=== PATIENT | male | born 2000 | race African-American/Black ===

== ENCOUNTER 2019-01-29 11:48 | Observation (INO) | payer OTHER ==
[2019-01-29] MEDS ORDERED: NS 0.9% 1000 ML** 1,000 ML IV ONE (12:35)
[2019-01-29] MEDS ORDERED: Morphine 4 MG/ML VIAL (1 ml) 4 MG/ML VIAL IV ONE (12:36)
[2019-01-29] MEDS ORDERED: Ondansetron INJ* 2 MG/ML VIAL IV ONE (12:36)
--- NOTE | 2019-01-29 12:36 | ED ---
Abdominal Pain/Male - HPI Summary HPI Summary: Pt is a 18 y/o M presenting to the ED with a chief complaint of abd pain onset yesterday morning on 01/29/19. He states that it started in his epigastric, umbilical area and has moved to his RLQ. This morning, he had some nausea without vomiting, and he also noted a small headache yesterday. No analgesia today. Pt took analgesa (OTC) yesterday. He denies sore throat, chest pain, hematuria, dysuria, and burning with urination. He also denies any hx of trauma , surgeries, recent travel or abx use. Isela sick contacts. No pain in penis or testicles no hematuria. no dysuria. Movement tends to make his sx worse but unable to find position that is comfortable. Pt's medications reviewed this visit - History of Current Complaint Chief Complaint: EDAbdPain Stated Complaint: ABD PAIN Time Seen by Provider: 01/29/19 12:11 Hx Obtained From: Patient Onset/Duration: Gradual Onset, Lasting Days, Still Present, Worse Since - today Timing: Constant, Lasting Days Severity Initially: Moderate Severity Currently: Severe Pain Intensity: 7 Pain Scale Used: 0-10 Numeric Location: Discrete At: RLQ Radiates: No Character: Sharp Aggravating Factor(s): Movement Alleviating Factor(s): Nothing Associated Signs And Symptoms: Positive: Nausea. Negative: Chest Pain, Urinary Symptoms, Vomiting - Allergies/Home Medications Allergies/Adverse Reactions: Allergies Allergy/AdvReac Type Severity Reaction Status Date / Time No Known Allergies Allergy Verified 01/29/19 11:56 Home Medications: Home Medications NK [No Home Medications Reported] 01/29/19 [History Confirmed 01/29/19] PMH/Surg Hx/FS Hx/Imm Hx Previously Healthy: Yes Endocrine/Hematology History: Denies: Hx Diabetes Cardiovascular History: Denies: Hx Hypertension Sensory History: Reports: Hx Contacts or Glasses Denies: Hx Deafness Neurological History: Denies: Hx Seizures Infectious Disease History: No Infectious Disease History: Denies: Traveled Outside the [place] in Last 30 Days - Family History Known Family History: Positive: Non-Contributory Negative: Diabetes - Social History Occupation: Student Lives: Dormitory/Roommates Alcohol Use: Occasionally Hx Substance Use: No Substance Use Type: Reports: None Hx Tobacco Use: No Smoking Status (MU): Never Smoked Tobacco Review of Systems Negative: Sore Throat Negative: Chest Pain Positive: Abdominal Pain, Nausea. Negative: Vomiting Negative: burning, dysuria, hematuria Negative: Headache All Other Systems Reviewed And Are Negative: Yes Physical Exam - Summary Physical Exam Summary: Vital Signs Reviewed: Yes A+Ox3, obvious discomfort with movement - lying still, knees flexed Eyes: Conjunctiva Clear ENT: Hearing grossly normal, mmoist Neck: Positive: Supple Respiratory: Positive: No respiratory distress, No accessory muscle use + CTA throughout no w/r Cardiovascular: RRR nl s1, s2 no m/r CBT <2 sec abd soft decreased BS significant discomfort RLQ with palpation + Rosving's Musculoskeletal Exam: NORRIS x 4 without difficulty Strength Intact, ROM Intact Neurological: Positive: Alert, + sensation throughout Psychological: Positive: Normal Response To Family Skin: Positive: no rash, no ecchymosis Triage Information Reviewed: Yes Vital Signs On Initial Exam: Initial Vitals Temp Pulse Resp BP Pulse Ox 97.7 F 72 20 116/66 98 01/29/19 11:53 01/29/19 11:53 01/29/19 11:53 01/29/19 11:53 01/29/19 11:53 Diagnostics - Vital Signs Vital Signs Temp Pulse Resp BP Pulse Ox 01/29/19 12:14 74 100 01/29/19 12:13 73 152/77 100 01/29/19 11:53 97.7 F 72 20 116/66 98 - Laboratory Result Diagrams: 01/29/19 13:39 01/29/19 13:39 Lab Statement: Any lab studies that have been ordered have been reviewed, and results considered in the medical decision making process. - CT Abd/pelv CT CT Interpretation Completed By: Radiologist Summary of CT Findings: Findings most consistent with acute appendicitis. ED physician has reviewed this report. - Ultrasound No standard instances Ultrasound Interpretation Completed By: Radiologist Summary of Ultrasound Findings: US appendix: THE APPENDIX WAS NOT VISUALIZED LIMITING THE STUDY, DEPENDING ON THE PATIENT'S CLINICAL STATUS CONSIDER A CT OF THE ABDOMEN AND PELVIS WITH INTRAVENOUS AND ORAL CONTRAST FOR FURTHER EVALUATION. ED physician has reviewed this report. Re-Evaluation - Re-Evaluation 1st re-eval Re-Evaluation Time: 13:24 Change: Unchanged Comment: I discussed the US results with the patient. 2nd re-eval Re-Evaluation Time: 15:49 Change: Unchanged Comment: I spoke with the patient about the CT a/p results and informed him that Dr. Petersen will be coming to see him for admission. He is stable and agreeable with this plan. Abdominal Pain Male Course/Dx - Course Course Of Treatment: Pt presents to the ED with progressive abdominal pain which has localized to RLQ. Pain with movement, + nausea no vomiting no fever. Vitals reviewed. Pt with TTP RLQ, + rosving's. High suspicion for acute appendicitis - I discussed with pt. Will check labs, analgesia, antiemetics, imaging -will start with US - if not diagnostic will proceed witih CT. Pt understanding pain. pt declined offer to call friend - pt will call - Diagnoses Provider Diagnoses: Acute appendicitis - Provider Notifications Discussed Care Of Patient With: Vidal Petersen Time Discussed With Above Provider: 15:49 Instructed by Provider To: Admit As Inpatient Discharge - Sign-Out/Discharge Documenting (check all that apply): Patient Departure All imaging exams completed and their final reports reviewed: Yes - Discharge Plan Condition: Stable Disposition: ADMITTED TO [facility] Referrals: [facility] [Outside] - Billing Disposition and Condition Condition: STABLE Disposition: Admitted to [facility] - Attestation Statements Document Initiated by Scribe: Yes Documenting Scribe: Teri Erickson Provider For Whom Fan is Documenting (Include Credential): Amanda Braun MD. Scribe Attestation: ITeri, scribed for Amanda Braun MD. on 01/29/19 at 1652. Scribe Documentation Reviewed: Yes Provider Attestation: The documentation as recorded by the scribeTeri accurately reflects the service I personally performed and the decisions made by me, Amanda Braun MD. Status of Scribe Document: Viewed Consult Consult: [id number] - I spoke with Dr. Petersen about the pt's present condition and the CT a/ p results, and he will be coming to evaluate the patient for admission to [facility]. 1603 - The pt will be accepted to [facility] under Dr. Petersen.
[2019-01-29 13:55] LABS: ABS Lymphocytes 0.7 10^3/ul (1.0-4.8); ABS Monocytes 0.6 10^3/ul (0-0.8); ABS Neutrophils 7.7 10^3/ul (1.5-7.7); Hematocrit 43 % (42-52); Hemoglobin 14.5 g/dL (14.0-18.0); Lymphocyte % 7.3 %; Mean Corpuscular HGB Conc 33 g/dL (31-36); Mean Corpuscular Hemoglobin 28 pg (27-31); Mean Corpuscular Volume 84 fL (80-94); Mean Platelet Volume 9.9 fL (7.4-10.4); Nucleated Red Blood Cells % 0.1; Platelet Count 177 10^3/uL (150-450); Red Blood Count 5.16 10^6 /uL (4.18-5.48); Red Cell Distribution Width 13 % (10.5-15); White Blood Count 8.9 10^3/uL (3.5-10.8)
[2019-01-29 14:13] LABS: Albumin 4.2 g/dL (3.2-5.2); Albumin/Globulin Ratio 1.4 (1-3); BUN/Creatinine Ratio 15.5 (8-20); EGFR Non-African American 116.5 (>60); Globulin 2.9 g/dL (2-4); Magnesium 1.4 mg/dL (1.9-2.7); Potassium 4.1 mmol/L (3.5-5.0); Total Bilirubin 0.7 mg/dL (0.2-1.0); Total Protein 7.1 g/dL (6.4-8.9)
[2019-01-29 14:37] LABS: Urine Appearance Clear; Urine Bilirubin Negative (Negative); Urine Blood Negative (Negative); Urine Color Straw; Urine Glucose Negative (Negative); Urine Ketones Negative (Negative); Urine Nitrite Negative (Negative); Urine Protein Negative (Negative); Urine Specific Gravity 1.008 (1.010-1.030); Urine Urobilinogen Negative (Negative)
[2019-01-29] MEDS ORDERED: Iohexol 300* (CONTRAST) 10 ML SDV IV ONE (14:51)
[2019-01-29] MEDS ORDERED: NS 0.9% 1000 ML** 1,000 ML IV SCH (16:00)
[2019-01-29] MEDS ORDERED: Piperacillin/Tazobac ADVAN(*) 3.375 GM in NS 0.9% 100 ML* 100 ML IVPB ONE (16:04)
[2019-01-29] MEDS ORDERED: Famotidine IV* 10 MG/ML 2 ML (20 mg) IV ONE (16:20)
[2019-01-29] MEDS ORDERED: fentaNYL* 50 MCG/ML 2 ML VIAL (100 MCG VIAL) ONE (16:27)
[2019-01-29] MEDS ORDERED: Midazolam* 1 MG/ML 5 ML VIAL (5 MG) ONE (16:27)
[2019-01-29] MEDS ORDERED: Atracurium* 10 MG/ML 10 ML VIAL ONE (16:27)
[2019-01-29] MEDS ORDERED: KETAMINE HCL* 50 MG/ML 10 ML VIAL ONE (16:27)
[2019-01-29] MEDS ORDERED: Naloxone* 0.4 MG/ML 1 ML VIAL IV PRN (17:11)
[2019-01-29] MEDS ORDERED: Scopolamine 1.5 mg* PATCH TRANSDERM PRN (17:11)
[2019-01-29] MEDS ORDERED: Morphine 4 MG/ML VIAL (1 ml) 4 MG/ML VIAL IV PRN (17:11)
[2019-01-29] MEDS ORDERED: DiMENhydriNATE IV* 50 MG/ML VIAL IV PUSH PRN (17:11)
[2019-01-29] MEDS ORDERED: PROCHLORPERAZINE INJ 5 MG/ML 2 ML VIAL IV PRN (17:11)
[2019-01-29] MEDS ORDERED: fentaNYL* 50 MCG/ML 2 ML VIAL (100 MCG VIAL) IV PRN (17:11)
[2019-01-29] MEDS ORDERED: Bupivacaine 0.25% EPI 200,000* 30 ML SDV ONE (17:16)
[2019-01-29] MEDS ORDERED: Glycopyrrolate IV* 0.2 MG/ML 1 ML VIAL ONE (17:45)
[2019-01-29] MEDS ORDERED: PROCHLORPERAZINE INJ 5 MG/ML 2 ML VIAL ONE (17:46)
[2019-01-29] MEDS ORDERED: Dexamethasone IV* 4 MG/ML 1 ML (4 MG) ONE (17:46)
[2019-01-29] MEDS ORDERED: Neostigmine Methylsulfate* 1 MG/ML 10 ML VIAL (1 mg/ml) ONE (17:46)
[2019-01-29] MEDS ORDERED: Ketorolac INJ* 30 MG/ML 1 ML VIAL ONE (17:46)
[2019-01-29] MEDS ORDERED: Morphine 10 MG/ML VIAL (1 ml) ONE (18:28)
[2019-01-29] MEDS ORDERED: HYDROmorphone INJ1* 1 MG/ML SYRINGE IV SLOW PU PRN (18:43)
[2019-01-29] MEDS ORDERED: Acetaminophen TAB* 325 MG PO PRN (18:43)
[2019-01-29] MEDS ORDERED: Ondansetron INJ* 2 MG/ML VIAL IV PRN (18:43)
[2019-01-29] MEDS ORDERED: oxyCODONE/Acetamin 5/325 MG* TAB PO PRN (18:43)
[2019-01-29] MEDS ORDERED: Ketorolac INJ* 30 MG/ML 1 ML VIAL IV PRN (18:43)
--- NOTE | 2019-01-29 18:43 | BRIEFOPN ---
Brief Operative Note - Surgery Procedures: OPERATIVE REPORT Pre-op: Acute appendicitis Post-Op: Same Procedure:Laparoscopic appendectomy Surgeon: MD Nicola Asst: none Anes: general with local , Comer IVF:1 liter of crystalloid EBL:min Specimen: appendix Drain: none Wound: 3 To PACU
--- NOTE | 2019-01-29 20:28 | HP ---
CC: [facility] * ADMISSION HISTORY AND PHYSICAL: DATE OF ADMISSION: 01/29/19 CHIEF COMPLAINT: Right lower quadrant abdominal pain. HISTORY OF PRESENT ILLNESS: Mr. 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 He did go to work for several hours, but the pain became worse, and over the next several hours, it progressively worsened and migrated to the right lower quadrant. He presented to the [facility] where he was noted to have a normal white blood cell count. After being seen there, he was sent to the emergency room here at [facility] with concerns for acute appendicitis. In the emergency room, he had a temperature of 99. He has otherwise stable vital signs. He was noted to have right lower quadrant abdominal tenderness. An ultrasound of his right lower quadrant was unrevealing, and he subsequently underwent a CAT scan of the abdomen and pelvis. I did review these images. The CT scan shows findings consistent with acute appendicitis, although the portion of the appendix is difficult to see. There was a thick-walled, mildly dilated appendix extending down the pelvis with findings consistent with acute appendicitis. There was no evidence of abscess, extraluminal air or fluid. Surgical consultation was obtained. PAST MEDICAL HISTORY: Unremarkable. PAST SURGICAL HISTORY: None. MEDICATIONS: None. ALLERGIES: He has no known drug allergies. SOCIAL HISTORY: He is living socially. He does not use tobacco. Drinks alcohol on a rare social basis. He does not use illicit drugs. He is single. He will be spending the summer here in [place]. REVIEW OF SYSTEMS: Cerebrovascular: No dizziness or visual disturbance. Cardiovascular: No chest pain or shortness of breath. Pulmonary: No wheezing or hemoptysis. GI: No chronic abdominal pain. He has never had pain like this in the abdomen before. : No urgency or hematuria. PHYSICAL EXAMINATION GENERAL: He is a slender male, appears to be in no apparent distress. He is awake, alert, and conversant. VITAL SIGNS: Temperature 99.3, pulse 73, blood pressure 108/73. LUNGS: Clear to auscultation with normal respiratory effort. HEART: Regular rate and rhythm without murmurs, rubs, or gallops. ABDOMEN: Soft, nondistended. He had diminished bowel sounds throughout. There are no prior surgical incisions. There are no hernias. He has tenderness in the right lower quadrant with rigidity in the muscles and voluntary guarding. There is no generalized peritoneal irritation. EXTREMITIES: Show no cyanosis or edema. PSYCHIATRIC: He is awake, alert, and oriented x3. He has normal judgment and insight. LABORATORY DATA: Laboratory values included a normal urinalysis. Electrolytes , BUN and creatinine were also unremarkable. He had a total bilirubin of 0.7. White blood cell count was 8.9 without shift. IMPRESSION: Acute appendicitis. PLAN: Laparoscopic appendectomy today. I discussed his history, physical exam , and the findings on the CT scan, and we discussed the recommended treatment and care of acute appendicitis here in the [place]. I recommended that he proceed with surgery with a laparoscope as the most optimal care. The procedure was discussed with him and the risks of, but not limited to, bleeding , infection, intraabdominal abscess formation, injury to peritoneal and retroperitoneal structures, possibility of an open procedure, blood clots, and the risks of general anesthesia were all discussed. In addition, we discussed nonoperative management briefly, and we discussed the risks and benefits as well and he would like to proceed with surgery. He will be kept n.p.o. He received IV antibiotics in the emergency room, and we will proceed with the surgery this evening as the operating room time availability permits. [id number]/[facility] #: [id number] ROMEO
[2019-01-29] MEDS: NS 0.9% 1000 ML** 1,000 ML IV SCH (21:00)
--- NOTE | 2019-01-30 04:52 | OP ---
DATE OF OPERATION: 01/29/19 - ROOM #331 DATE OF : 2000 SURGEON: Vidal Petersen MD FLEECE TIER: None. ANESTHESIOLOGIST: Dr. Medeiros. ANESTHESIA: Local with general anesthesia. PRE-OP DIAGNOSIS: Acute appendicitis. POST-OP DIAGNOSIS: Acute suppurative appendicitis. OPERATIVE PROCEDURE: Laparoscopic appendectomy. ESTIMATED BLOOD LOSS: Minimal. IV FLUIDS: 1 L of crystalloid. SPECIMEN: Appendix. WOUND CLASSIFICATIONS: 3. DRAINS: None. COMPLICATIONS: None. DESCRIPTION OF PROCEDURE: Written informed consent was obtained, the abdomen was marked with indelible ink and preoperative antibiotics were administered. The patient was taken to the operative room and placed in the supine position. Sequential compression devices and warming blanket were applied. The abdomen was prepped and draped in the usual sterile fashion. Time-out verification was completed. A small transverse incision was made just above umbilicus at the midline. The peritoneal cavity was entered under direct vision. A 12-mm blunt port was inserted and the abdomen was insufflated to 12 mmHg. Under direct vision, a 5-mm port was placed in the left lower abdominal wall and a second 5-mm port was placed in the suprapubic position. The cecum was identified. It was normal as well as ascending colon. Terminal ileum was unremarkable. There was no evidence of peritonitis or purulent fluid or significant amount of fluid in the pelvis. The appendix was identified. It was somewhat extraperitoneal, but extended down into the pelvis. There was fibrinous exudate and suppurative inflammation of the appendix consistent with acute suppurative appendicitis without evidence of gangrene, perforation, or abscess formation. The mesoappendix was divided from its tip to the base with ligature device. There was some lateral peritoneal attachments more proximally, which were also divided to expose the base of the cecum. Base of the cecum was unremarkable then an Endo YUDY dempsey load of 45 mg stapler was used to divide the appendix at its base. The appendix was removed through the umbilical port in EndoCatch bag. The right lower quadrant was evaluated. The staple line was intact without evidence of bleeding and hemostasis was assured. All ports were removed under direct vision of the camera. The umbilical fascia was closed with interrupted 0 Vicryl suture. The skin at all 3 incisions was approximated with subcuticular 4-0 Vicryl suture. Steri-Strips were applied. The patient tolerated the procedure well, was taken to the recovery room in stable condition. [id number]/[facility] #: [id number] MTDRanjith
[2019-01-30] MEDS: NS 0.9% 1000 ML** 1,000 ML IV SCH (05:22)
[2019-01-30 07:51] VITALS: BP 97/48
--- NOTE | 2019-01-30 08:12 | PN ---
Progress Note - Progress Note Date of Service: 01/30/19 SOAP: Subjective: Doing well Tolerating some liquids Ambulated to bathroom Objective: Temp Pulse Resp BP Pulse Ox 98.1 F 60 18 97/48 100 01/30/19 07:45 01/30/19 07:45 01/30/19 07:45 01/30/19 07:45 01/30/19 07:45 Intake & Output 01/28/19 01/29/19 01/30/19 01/31/19 06:59 06:59 06:59 06:59 Intake Total 3350 Output Total 350 0 Balance 3000 0 Weight 146 lb Intake: IV Fluids 2990 LR 1000 NS (0.9%) 990 Oral 360 Output: Urine 350 0 PEX: Comfortable Lungs are clear Abd is soft and non-distended. Incisions CDI Assessment: S/P lap apppy for acute appendicitis Plan: Advance diet Analgesia D/C home today Outpatient follow up
[2019-02-01] MEDS ORDERED: Scopolamine PATCH Remove* 1 NOTE MISC PATCH OFF ONE (17:12)
--- NOTE | 2019-02-03 14:38 | DS ---
CC: [facility] * DISCHARGE SUMMARY: DATE OF ADMISSION: 01/29/19 DATE OF DISCHARGE: 01/30/19 PRINCIPAL DIAGNOSIS: Acute appendicitis. PROCEDURE: Laparoscopic appendectomy. DISPOSITION: To home. CONDITION ON DISCHARGE: Good. MEDICATION ON DISCHARGE: Percocet 5/325 one tablet p.o. q.4 hours, #10, with no refills. INSTRUCTIONS FOR FOLLOWUP: Wound instructions and postoperative activity restrictions and care were given on a separate instruction sheet. Followup appointment was made to be seen in the office in 7 to 10 days. BRIEF HISTORY: Mr. 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 He was noted to have a normal white blood cell count with tenderness in the right side of his lower abdomen. A CT scan of the abdomen and pelvis was obtained in the emergency room, which showed acute appendicitis and surgical consultation was obtained. HOSPITAL COURSE: The patient was seen on the day of presentation in surgical consultation. It was felt that he had acute appendicitis and was taken to the operating room in the evening. That evening he underwent laparoscopic appendectomy for acute suppurative appendicitis. Due to the lateness of the day and the hour, he spent the night in the hospital postoperatively. On hospital day #1, he was doing well, remaining afebrile, tolerating liquids, his pain was adequately controlled, and he was discharged home with the above instructions. [id number]/[facility] #: [id number] MTDD
== END 2019-01-30 10:45 | disposition home or self-care (01) ==
LOC: ED 11:48 → OR 11:48 → SSU 21:02
PROVIDERS: ADMIT Surgery; ATTEND Surgery
DX: K35.80 Unspecified acute appendicitis (principal); R10.31 Right lower quadrant pain; R11.10 Vomiting, unspecified
CPT/HCPCS: 36415; 74177; 76705; 80053; 81003; 83735; 85025; 88304; 96361; 96374; 96375; 99284; A9270-GY; C1776; G0378; J0780; J1100; J1885; J2250; J2270; J2405; J2543; J2710; J3010; Q9967